=== PATIENT | female | born 1995 | race Caucasian/White ===

== ENCOUNTER 2017-06-25 06:30 | Day surgery (SDC) | payer BC ==
[2017-06-25] VITALS (7 sets, daily range): BP systolic 100–125; BP diastolic 66–72
[~2017-06-25] VITALS: Ht 162.6 cm; Wt 59.0 kg
--- NOTE | ~2017-06-25 | O ---
[facility] [place] [address] OPERATIVE REPORT Name: VENUS REYNOLDS Room #: 150-4 [facility]..#: [id number] Admission: 06/25/17 Attend Phys: Bhavin Wing MD Discharge: Date of : 89 Report #: [id number] THIS REPORT FOR: //name// CC: Bhavin Welch DATE OF SERVICE: 06/25/2017 SURGEON: Bhavin Wing MD. PREOPERATIVE DIAGNOSES: 1. Left thyroid mass. 2. Multinodular thyroid. POSTOPERATIVE DIAGNOSES: 1. Left thyroid mass. 2. Multinodular thyroid. OPERATION PERFORMED: Left thyroid lobectomy with isthmusectomy with recurrent laryngeal nerve dissection and preservation. INDICATIONS: The patient is a 22-year-old female presenting on referral from her primary care physician with a large mass in the left thyroid that is symptomatic. Ultrasound had shown a 4.6 cm mass in the left lobe. Fine needle aspiration was done consistent with a benign follicular lesion. The patient is biochemically euthyroid. Because of the cosmetic enlargement of the neck as well as the discomfort from the mass, options of thyroid lobectomy, possible total thyroidectomy were discussed. DESCRIPTION OF PROCEDURE: The patient was brought to the operating room and placed supine on the operating table. After adequate general anesthesia was achieved via endotracheal intubation with a nerve integrity monitoring endotracheal tube, a shoulder roll was placed and the neck was extended, planned incision was marked out above the manubrium and injected with 1% Xylocaine with 1:100,000 epinephrine. As a separate part of the procedure, ground electrodes were placed in the soft tissue overlying the sternum and contralateral shoulder. The electrodes from the endotracheal tube were then connected to the nerve integrity monitor. Electrode resistance and impedance was measured and found to be acceptable. Stimulus and threshold intensity parameters were set and the patient was monitored for the entirety of the case of approximately 2 hours in order to locate and protect the recurrent laryngeal nerve. She was then prepped and draped in a sterile fashion. [address] [address] OPERATIVE REPORT Name: VENUS REYNOLDS Room #: 150-4 [facility].#: [id number] Admission: 06/25/17 Attend Phys: Bhavin Wing MD Discharge: Date of : 89 Report #: [id number] The procedure began with incision through skin, subcutaneous tissue, and platysma. Subplatysmal flaps were elevated superiorly and inferiorly. The investing fascia was divided vertically in the midline and the strap muscles were reflected laterally. Dissection began initially on the left, this mass was very large and tented the strap muscles. Once this was fully exposed attention was turned to the right, the soft tissue was elevated off the right gland so that it could be examined and palpated. Beginning inferiorly, the inferior vessels were sequentially identified, clamped between Ligaclips and divided. The isthmus was elevated off the trachea. The isthmus was then taken just medial to the inferior thyroid vein on the right side. Superiorly, the superior vessels on the left were sequentially identified, clamped between Ligaclips and divided. The soft tissue was then taken down laterally. The middle thyroid vein was identified, clamped between the Ligaclips and divided. The gland was then rolled up onto the trachea and delivered into the wound, so that the examination could be made in the tracheoesophageal groove. The recurrent laryngeal nerve was found in its usual anatomic position and tracked superiorly at the cricothyroid joint and protected. Ge's ligament was taken down sharply after the nerve had been identified. The superior parathyroid was attached to the capsule, dissected free and kept pedicled on its blood supply. The inferior parathyroid was also adjacent to this very large mass running with the inferior thyroid artery. This was identified and dissected free on its blood supply and preserved. Once Ge's ligament was taken down the remaining attachments were removed from the trachea and the lobe delivered off the field as specimen to pathology. Frozen section did confirm what appeared to be a benign follicular mass. There was no evidence of malignancy that was noted and after palpation of the opposite right lobe it was found to be relatively normal. It was decided to quit at the lobectomy level and not proceed with total thyroidectomy. The patient understands that if this comes back positive for carcinoma that this will take a return trip to the operating room for removal. The hemostasis was assured with bipolar cautery and clip ligature. The wound was irrigated copiously, powdered Sejal was placed opposite each cricothyroid joint. The nerve was stimulated prior to closure and found to be intact. Both parathyroids were also examined and found to be viable. The strap muscles were then closed vertically in the midline with interrupted 3-0 Vicryl. A 10-Faroese Phong drain was placed through a separate stab incision, curled into the wound and connected to bulb suction. The platysmal layer was then closed with interrupted 3-0 Vicryl, 4-0 Vicryl deep dermal sutures were placed, and 5-0 running subcuticular Prolene on skin. Mastisol and Steri-Strips were applied. The drain was sutured in place with 2-0 silk and connected to bulb suction. An OpSite was placed for final dressing after the Steri-Strips. The patient was then returned to anesthesia, awakened without difficulty, and returned to recovery in good condition. Sponge and needle counts were correct. There were no complications and the blood loss was about 20 mL. She will be watched until awake and stable, presuming she does well, discharged to home with plans to [facility] [address] [place] [address] OPERATIVE REPORT Name: VENUS REYNOLDS Room #: 150-4 [facility] M..#: [id number] Admission: 06/25/17 Attend Phys: Bhavin Wing MD Discharge: Date of : 89 Report #: [id number] follow with me in 2 weeks. Written and verbal discharge instructions and emergency precautions have been given to the family. DISCHARGE MEDICATIONS: Include cephalexin 500 mg 4 times a day x 10 days, Phenergan suppository 25 mg 1 per rectum q. 4-6 hours p.r.n., hydrocodone/acetaminophen 7.5/325 one to two q.4-6 hours p.r.n., Tums 500 mg 2 tablets 3 times a day. She is instructed on light activity and a soft diet. The patient's T4 and TSH level will be checked in 2 to 3 weeks to be sure that the remaining lobe is adequate for her hormonal needs. By: [id number] Bhavin Wing MD /nt
--- NOTE | ~2017-06-25 | S ---
[facility] [place] [address] SURGICAL PATH RPT PROCEDURE Name: KRISTINE FINNEY Room #: DEP [facility].#: [id number] Admission: 06/25/17 Date of : 89 Discharge: 06/26/17 Report #: [id number] Path Case #: [id number] PATHOLOGY REPORT COLLECTION DATE: 06/25/2017 RECEIVED DATE: 06/25/2017 SUBMITTING PHYS: Dr. Bhavin Wing OTHER PHYS: Dr. 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 - Background thyroid tissue with mild chronic thyroiditis. - Lymph node, 1 perithyroidal, with minimal histologic alterations. (1 node) (CLW:sheela; 06/27/2017) PATHOLOGIST: Julia Valdes M.D. REPORT ELECTRONICALLY SIGNED BY: Julia Valdes M.D. DATE/TIME: 06/27/2017 23:45 * * * * * * * * * * * * GROSS PATHOLOGY: Received fresh labeled, "Kristine Finney and left thyroid and isthmus", consists of a 21 gram specimen which contains a pink-red, 5.5 x 2 x 2.5 cm lobe thyroid which is connected to a 3.5 x 1 x 0.9 cm pink-red isthmus. The outer surface of the specimen is smooth. The outer surface of the thyroid lobe is inked blue. The isthmus is inked red. The specimen is serially sectioned and it reveals a fairly well-circumscribed nodule in the left lobe which measures 2.2 x 1.8 x 1.8 cm. This nodule is composed of somewhat soft dark red parenchyma with focal areas of cystic degeneration. A truck sales representative section of this nodule is frozen on A1. The frozen remnant is submitted in A1. (SKM:adrian; 06/25/2017) Additional truck sales representative sections are submitted in cassettes A2 through A5. (CAA; 06/26/2017) FROZEN SECTION DIAGNOSIS: (Chace Bullard M.D.) Left thyroid and isthmus: - Follicular neoplasm. No evidence of carcinoma. [facility] [place] [address] SURGICAL PATH RPT PROCEDURE Name: KRISTINE FINNEY Darby [id number] Admission: 06/25/17 Date of : 89 Discharge: 06/26/17 Report #: [id number] Path Case #: [id number] Testing performed by [facility] at [facility] [address] [place] [address] ([facility]:adrian; 06/25/2017) CLINICAL HISTORY: Left thyroid nodule INITIAL CPT CODE(S): A; 73490, 85062, 68602 Professional services performed by [facility] at [facility] [address] [address] [place] [address] Technical services performed by [facility] at [address] [place] [address], [address], [place] [address]. [facility] [address] [place] [address] PHONE: [phone] DIRECTOR: Daquan Elise M.D. * * * END OF REPORT * * *
[~2017-06-25 06:30] MED LIST: IBUPROFEN 200200 M1 PO
[2017-06-25] MEDS ORDERED: PROMS25 WY RECTAL (14:21)
[2017-06-25] MEDS ORDERED: NORCO 7.5-3251 EACH PO (14:22)
[2017-06-25] MEDS ORDERED: TUMS PO (14:22)
[2017-06-25] MEDS ORDERED: KEFLEX500 MG PO (14:26)
[2017-06-25 14:58] LABS: ALBUMIN 3.6 g/dL (3.4-5.0); CALCIUM 8.1 mg/dL (8.5-10.1); MAGNESIUM 1.7 mg/dL (1.8-2.4)
[2017-06-26] VITALS: BP 97/55
[2017-06-26 05:30] VITALS: BP 97/47
[2017-06-26 08:15] VITALS: BP 98/58
[2017-06-26 11:11] VITALS: BP 98/58
== END 2017-06-26 11:47 | disposition home or self-care (01) ==
LOC: TBA 06:30 → 4E 06:30 → OR 06:30 → TBA 06:45 → OR 13:39 → 4E 15:41 → ENTRNSPT 06-26 11:33 → EDTRNSPTSTS 06-26 11:34 → OR 06-26 11:47
PROVIDERS: Otolaryngology Plastic Surgery within the Head & Neck
DX: D34 Benign neoplasm of thyroid gland (principal); E06.5 Other chronic thyroiditis; Z98.890 Other specified postprocedural states
CPT/HCPCS: 10783; 50010; 50101; 50331; 50386; 50417; 52190; 52220; 52287; 56524; 56526; 56528; 56760; 57006; 62110; 62900; 70005